=== PATIENT | female | born 1980 ===

== ENCOUNTER 2020-08-25 10:14 | Inpatient (IN) | payer MEDICARE, MEDICAID, SELFPAY ==
[2020-08-25 10:00] VITALS: BMI 20.7
[2020-08-25 10:23] VITALS: BP 96/73; PULSE 114; RESP 16; TEMP 36.8; O2SAT 97
[2020-08-25 14:00] VITALS: BP 90/60; PULSE 74; RESP 20; TEMP 37; O2SAT 96
[2020-08-25 22:00] VITALS: BP 104/63; PULSE 110; RESP 17; TEMP 36.7; O2SAT 99
[2020-08-26 06:00] VITALS: BP 101/66; PULSE 93; RESP 16; TEMP 36.6; O2SAT 97
--- NOTE | 2020-08-26 08:11 | P.HP_ITS ---
Providers/Chief Complaint Admitting Physician: Blue Kaplan MD Chief Complaint: Psychosis HPI NPU History of Present Illness Bouchra Peralta is a 40 year old female who presented to an outside hospital with concerns for psychosis, erratic behavior and possible kayden and was transferred to [facility] and eventually the neuropsychiatric unit for definitive treatment of those issues. On the unit she presents reporting that she has been hospitalized once or twice before under similar circumstances. The first time was in 2013 for 3 days in [facility]. She reports that after one of the hospitalizations she did have outpatient follow-up for a while. Medication has not been a significant treatment modality. She reports that there is never meant medications used to change the trajectory of her presentations. She reports that just like the other 2 times she has found himself in a cessation and she has a significant restorationism background and reports that she ends up feeling extremely restorationism, often feels like she does not do enough to share spirituality with those around her and any stressful situations feels driven to do so. What ends up occurring is that she will go out into the [place] now there is a specific place that she goes to commune with nature and got in if she starts feeling more spiritual she feels she needs to remove all things standing between her and. At which time she gets naked and she has now been discovered in that state at least 2 times. Very quickly she reports that she returns to her normal status and likely long. She reports that there is no change in her sleep patterns, she is not having auditory or visual hallucinations, she not feeling paranoia or special abilities. She reports that the most recent stressor is she is dealing with the break-up of her significant other and her from a 4-month relationship. She does not smoke cigarettes, drink alcohol smoke marijuana or use any other drugs has never been to rehab or had a DUI. She is not interested in any medication and we agreed that we would get collateral information and work with her family to make sure she is safe for discharge when we discharged her. Psychiatric history: As above. Subs abuse history: As above. Family history: Patient denies mental health or addiction issues on either side of the family and denies suicide attempts or completions in the family. Developmental history: There were no problems with the , or delivery, learned to walk and talk and met developmental milestones on time, and denies need for speech therapy, learning support, emotional support or special education classes. Psychosocial history: She reports that her parents were together when she was born but are no longer together. She is the only product of that union. She reports that her mother has 2 daughters that are her half siblings she does not believe her dad had any other children. She reports her childhood was good and denied emotional, physical or sexual abuse. She graduated from high school third in her class she did go community college but she quit secondary to the of her child. She endorses being heterosexual and a long relationship being 6 years. She been 1 time once, she has a 21-year-old daughter, she never been in the and she endorses being a [employer] of the [employer] man[employer]. She reports working at a [employer] for 10 years and currently living in apartment alone. Legal history: She denies any previous alf time or legal peril. Medical history: She endorses having lupus and occasionally having lupus infusions. She did have her daughter by section. She denies any other major medical issues. Meds NPU Home Medications Medication Instructions Recorded Confirmed Last Taken Type No Known Home Medications 08/28/20 08/28/20 Unknown History Allergies Allergy/AdvReac Type Severity Reaction Status Date / Time No Known Allergies Allergy Verified 08/26/20 03:37 PFS NPU PFSH: Medical History (Updated 08/28/20 @ 05:30 by Blue Kaplan MD) Altered mental status Anxiety Hypersexuality Pt found in an open field praying nude Psychosis Mental Status Exam MSE Comments: This is a tall slender white female with hospital scrubs on with adequate grooming and limited eye contact. No abnormal movements except for mild psychomotor retardation. Cooperative with exam in no acute distress. Speech was slightly decreased rate and volume. Mood described as pretty good affect subdued. Thought process organized. Thought content: Patient denied suicidal or homicidal ideation, there are no delusions reported or noted, she had no other hallucinations. Attention and concentration were intact and memory was limited but none were formally tested. She is alert and oriented x3. Insight and judgment are limited, impulse control is impaired. Vitals/I&O/Wt Last Vital Signs Temp 97.8 F 08/26/20 06:00 Pulse 93 08/26/20 06:00 Resp 16 08/26/20 06:00 BP 101/66 08/26/20 06:00 Pulse Ox 97 05/21/21 06:00 Weight last 48 hrs Weight 63.503 kg A&P Assessment and plan (1) Altered mental status: Status: Acute (2) Psychosis: Status: Acute (3) Anxiety: Status: Acute Additional A&P Information This is a 40-year-old white female with odd, impulsive behavior discovered by family and police trying the mood out in a secluded area down for possibly the third time with concerns for kayden. 1. Continue current medication. We will explore the appropriateness for medication. 2. Continue every 15 minute checks for safety. 3. Encourage individual, group and milieu therapies. 4. We will obtain collateral information to determine the nature of this phenomenon and consider whether pharmacological interventions are necessary and consider safety for discharge.. Involuntary Hold Information 96 Hour Hold: 96 Hour Involuntary Admission: No Attestations NPU Medical Necessity Statement*: Inpatient hospitalization is medically necessary and the clinically appropriate intervention at this time. We will monitor medications and make changes as indicated. Patient will be in the hospital for over two midnights. Likely length of stay 3 to 5 days. Coding Level of Care Code Acute Local Superintendent for Avery Singh Diagnoses Altered mental status R41.82 Psychosis F29 Anxiety F41.9
[2020-08-26 14:00] VITALS: BP 101/67; PULSE 100; RESP 20; TEMP 36.8; O2SAT 100
[2020-08-26 21:42] VITALS: BP 99/60; PULSE 93; RESP 20; TEMP 37; O2SAT 99
[2020-08-27 05:48] VITALS: BP 95/66; PULSE 84; RESP 20; TEMP 37.6; O2SAT 99
[2020-08-27 14:00] VITALS: BP 94/65; PULSE 84; RESP 18; TEMP 36.1; O2SAT 100
--- NOTE | 2020-08-27 18:32 | P.PN_ITS ---
Subjective NPU Subjective: Interval history: Bouchra presents today reporting that she is feeling fine and feeling back to being herself. We continue to discuss the problematic aspect of her stress reactions when she gets naked in a field on property that does not belong to her. She is able to identify that and the fact that this pattern now raises significant concerns. We were able to reach out to her daughter and her daughter reports that this is how the situations go where after the episode is a few days and the review mirror she is totally back to herself without medication interventions. She is now seeing the need to engage in therapy and be able to address her stress in a therapeutic environment. She denies any significant symptoms. Mental Status Exam MSE Comments: This is a tall slender white female with hospital scrubs on with adequate grooming and eye contact. No abnormal movements except for mild psychomotor retardation. Cooperative with exam in no acute distress. Speech was slightly decreased rate and volume. Mood described as pretty good affect subdued. Thought process organized. Thought content: Patient denied suicidal or homicidal ideation, there are no delusions reported or noted, she had no other hallucinations. Attention and concentration were intact and memory appeared reliable but none were formally tested. She is alert and oriented x3. Insight and judgment are improving, impulse control is limited, but improving. Vitals/I&O/Wt Last Vital Signs Temp 98.4 F 08/27/20 20:08 Pulse 72 08/27/20 20:08 Resp 18 08/27/20 20:08 BP 90/59 08/27/20 20:08 Pulse Ox 100 08/27/20 20:08 A&P Additional A&P Information (1) Altered mental status: (2) Psychosis: (3) Anxiety: Additional A&P Information This is a 40-year-old white female with odd, impulsive behavior discovered by family and police trying the mood out in a secluded area down for possibly the third time with concerns for kayden. 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 1. Continue current medication. 2. Continue every 15 minute checks for safety. 3. Encourage individual, group and milieu therapies. 4. Discussed possibility of discharge tomorrow if there are no concerns overnight. Involuntary Hold Information 96 Hour Hold: 96 Hour Involuntary Admission: No Attestations NPU Medical Necessity Statement*: Inpatient hospitalization is medically necessary and the clinically appropriate intervention at this time. We will monitor medications and make changes as indicated. Likely length of stay 1-3 days. With conversation with daughter acknowledging that this is the pattern and there are no residual issues very shortly thereafter will consider discharge tomorrow. Coding Level of Care Code Acute Alcoholic Counselor for Avery Singh
[2020-08-27 20:08] VITALS: BP 90/59; PULSE 72; RESP 18; TEMP 36.9; O2SAT 100
[2020-08-28 06:00] VITALS: BP 97/65; PULSE 85; RESP 18; TEMP 36.5; O2SAT 97
--- NOTE | 2020-08-28 08:35 | PM.NDC ---
Diagnoses at Discharge Discharge Diagnosis (1) Altered mental status: Status: Resolved (2) Psychosis: Status: Resolved (3) Anxiety: Status: Acute Reason for Visit Reason for Visit: Psychosis Brief History: History of Present Illness Bouchra Peralta is a 40 year old female who presented to an outside hospital with concerns for psychosis, erratic behavior and possible kayden and was transferred to [facility] and eventually the neuropsychiatric unit for definitive treatment of those issues. On the unit she presents reporting that she has been hospitalized once or twice before under similar circumstances. The first time was in 2013 for 3 days in [facility]. She reports that after one of the hospitalizations she did have outpatient follow-up for a while. Medication has not been a significant treatment modality. She reports that there is never meant medications used to change the trajectory of her presentations. She reports that just like the other 2 times she has found himself in a cessation and she has a significant orthodoxy background and reports that she ends up feeling extremely orthodoxy, often feels like she does not do enough to share spirituality with those around her and any stressful situations feels driven to do so. What ends up occurring is that she will go out into the [place] now there is a specific place that she goes to commune with nature and got in if she starts feeling more spiritual she feels she needs to remove all things standing between her and. At which time she gets naked and she has now been discovered in that state at least 2 times. Very quickly she reports that she returns to her normal status and likely long. She reports that there is no change in her sleep patterns, she is not having auditory or visual hallucinations, she not feeling paranoia or special abilities. She reports that the most recent stressor is she is dealing with the break-up of her significant other and her from a 4-month relationship. She does not smoke cigarettes, drink alcohol smoke marijuana or use any other drugs has never been to rehab or had a DUI. She is not interested in any medication and we agreed that we would get collateral information and work with her family to make sure she is safe for discharge when we discharged her. Psychiatric history: As above. Subs abuse history: As above. Family history: Patient denies mental health or addiction issues on either side of the family and denies suicide attempts or completions in the family. Developmental history: There were no problems with the , or delivery, learned to walk and talk and met developmental milestones on time, and denies need for speech therapy, learning support, emotional support or special education classes. Psychosocial history: She reports that her parents were together when she was born but are no longer together. She is the only product of that union. She reports that her mother has 2 daughters that are her half siblings she does not believe her dad had any other children. She reports her childhood was good and denied emotional, physical or sexual abuse. She graduated from high school third in her class she did go community college but she quit secondary to the of her child. She endorses being heterosexual and a long relationship being 6 years. She been 1 time once, she has a 21-year-old daughter, she never been in the and she endorses being a Jew of the [employer]. She reports working at a [employer] for 10 years and currently living in apartment alone. Legal history: She denies any previous shelter time or legal peril. Medical history: She endorses having lupus and occasionally having lupus infusions. She did have her daughter by section. She denies any other major medical issues. Hospital Course Hospital Course Bouchra presented to the emergency department after an episode where she was found naked out in the [place]. She was admitted to the neuropsychiatric unit for evaluation of that presentation. On the unit she slowly acclimated to the individual, group milieu therapies provided. It became clear that this behavior is a stress response that she has had on multiple occasions. After these occasions she reportedly returned to normal without significant intervention. We did not start medication and she demonstrated modest improvement able to contract for safety prior to discharge. During the hospitalization, patient had routine laboratory studies which were within normal limits except for few outliers. Additionally there was a general medical evaluation which was also within normal limits and revealed no new acute processes. Discharge Summary: At the time of discharge, lethality was denied and thought disorder/psychosis was resolving. Mood and anxiety were well managed. Patient endorsed a plan to avoid all drugs of abuse and follow-up with the aftercare recommendations of the treatment team. Patient was evaluated and deemed to be absent credible lethality, and had achieved the maximum benefit from an inpatient hospitalization, so was discharged. Involuntary Hold Information 96 Hour Hold: 96 Hour Involuntary Admission: No Mental Status Exam MSE Comments: This is a tall slender white female with hospital scrubs on with adequate grooming and eye contact. No abnormal movements except for resolving psychomotor retardation. Cooperative with exam in no acute distress. Speech was slightly decreased rate and volume. Mood described as pretty good, affect brighter. Thought process organized. Thought content: Patient denied suicidal or homicidal ideation, there are no delusions reported or noted, she denied auditory or visual hallucinations. Attention and concentration were intact and memory appeared reliable but none were formally tested. She is alert and oriented x3. Insight and judgment are improving, impulse control is improving. Discharge Data Vitals: Last Vital Signs Temp 97.7 F 08/28/20 06:00 Pulse 85 08/28/20 06:00 Resp 18 08/28/20 06:00 BP 97/65 08/28/20 06:00 Pulse Ox 97 08/28/20 06:00 Discharge Plan Discharge Patient Disposition: Home Condition: Stable Prescriptions: Continued No Known Home Medications RF: 0 Discharge Orders: Discharge Order (Routine); Ordered 08/28/20 Ordered By: Blue Kaplan Referrals: [facility] [Other] (Call and leave you information for a consult.) Discharge Diet: Regular Discharge Activity: Resume usual activity Patient Instructions: Opioid Safety Discharge Attestations NPU Time Spent in Discharge Care*: less than 30 min Specific Discharge Activities: Specific discharge activities: educating patient, discussing with director case management/social workers/dc planners, documenting/other paperwork and evaluating patient/reviewing data Coding Level of Care Code Acute Chg DC note Diagnoses Altered mental status R41.82 Psychosis F29 Anxiety F41.9
[2020-08-28 08:44] VITALS: BP 97/65; PULSE 85; RESP 18; TEMP 36.5; O2SAT 97
== END 2020-08-28 13:20 | disposition home or self-care (01) | DRG 885 ==
PROVIDERS: Admitting Provider Psychiatry & Neurology Psychiatry; Visit Provider Psychiatry & Neurology Psychiatry
DX: F29 Unspecified psychosis not due to a substance or known physiological condition (principal); F41.9 Anxiety disorder, unspecified; M32.9 Systemic lupus erythematosus, unspecified; Z63.0 Problems in relationship with spouse or partner